=== PATIENT | male | born 1970 | race Caucasian/White ===

== ENCOUNTER 2017-11-17 22:16 | Emergency (ER) | payer MEDICAID ==
[~2017-11-17] VITALS: Ht 172.7 cm; Wt 68.0 kg
[2017-11-17 22:22] VITALS: Ht 172.7 cm; Wt 68.0 kg
[2017-11-17] MEDS ORDERED: GLUCOPHAGE500 MG (22:24)
[2017-11-17] MEDS ORDERED: LISINOPRIL10 MG (22:24)
[2017-11-17] MEDS ORDERED: HYDROCODON-ACE1 EAC7 PO (22:55)
[2017-11-17] MEDS ORDERED: CLEOCIN HCL150 MG PO (22:55)
[2017-11-18 00:35] VITALS: BP 148/90
== END 2017-11-17 23:10 | disposition home or self-care (01) ==
LOC: D.ER 22:16
DX: L84 Corns and callosities (principal); E11.9 Type 2 diabetes mellitus without complications

== ENCOUNTER → 2018-04-09 13:58 | Outpatient (CLI) | payer MEDICAID ==
[~2018-04-09 13:58] MED LIST: CLEOCIN HCL150 MG PO; GLUCOPHAGE500 MG; HYDROCODON-ACE1 EAC7 PO; LISINOPRIL10 MG
[2018-04-09 17:03] LABS: ALBUMIN 4.2 g/dL (3.4-5.0); ALKALINE PHOSPHATASE 87 U/L (46-116); ALT (SGPT) 23 U/L (10-68); BILIRUBIN - TOTAL 0.46 mg/dL (0.2-1.3); CALC OSMOLALITY 281 mosm/kg (275-300); CALCIUM 9.6 mg/dL (8.5-10.1); CARBON DIOXIDE 29.9 mmol/L (21.0-32.0); CHLORIDE - SERUM 98 mmol/L (98-107); CREATININE - SERUM 0.7 mg/dL (0.6-1.3); GLUCOSE 257 mg/dL (74-106); POTASSIUM - SERUM 4.4 mmol/L (3.5-5.1); PROTEIN - SERUM 7.8 g/dL (6.4-8.2); SODIUM 137 mmol/L (136-145); UREA NITROGEN 9 mg/dL (7-18); eGFR NON AFRICAN AMERICAN > 90 mL/min (90-120)
== END | disposition home or self-care (01) ==
LOC: D.MRI 13:00
PROVIDERS: Family Medicine
DX: M25.551 Pain in right hip (principal); I10 Essential (primary) hypertension